=== PATIENT | female | born 1985 | race Caucasian/White ===

== ENCOUNTER 2017-09-06 09:27 | Emergency (ER) | payer OTHER ==
[~2017-09-06] VITALS: Ht 157.5 cm; Wt 104.8 kg
[~2017-09-06 09:27] MED LIST: SYN1 PO
[2017-09-06 09:33] VITALS: Ht 157.5 cm; Wt 104.8 kg
[2017-09-06 11:39] LABS: BASOPHIL % 0.3 % (0-2); PLATELET COUNT 215 x10^3mcL (130-400); RED CELL DISTRIBUTION WIDTH 13.3 % (11.5-14.5)
[2017-09-06 11:41] LABS: microscopic required? NO
[2017-09-06 11:56] LABS: UA SPECIFIC GRAVITY 1.015 (1.005-1.035); urine erythrocyte NEGATIVE (NEGATIVE)
[2017-09-06 11:57] LABS: ALKALINE PHOSPHATASE 80 U/L (46-116); ALT/SGPT 21 U/L (14-59); AST/SGOT 13 U/L (15-37); BILIRUBIN TOTAL 0.4 mg/dL (0.20-1.00); CARBON DIOXIDE 25.6 mmol/L (21-32); CHLORIDE SERUM 105 mmol/L (98-107); CREATININE SERUM 0.5 mg/dL (0.6-1.0); GFR1 > 60 mL/min; GLUCOSE SERUM 85 mg/dL (74-106); LIPASE 158 IU/L (73-393); POTASSIUM SERUM 4.1 mmol/L (3.5-5.1); SODIUM SERUM 139 mmol/L (136-145); TOTAL PROTEIN, SERUM 7.4 g/dL (6.4-8.2)
[2017-09-06 11:58] LABS: ALBUMIN 3.3 g/dL (3.4-5.0)
[2017-09-06 13:28] VITALS: BP 110/52
== END 2017-09-06 13:28 | disposition home or self-care (01) ==
LOC: ED 09:27
PROVIDERS: Emergency Medicine
DX: O26.892 Other specified pregnancy related conditions, second trimester (principal); R10.13 Epigastric pain; Z3A.14 14 weeks gestation of pregnancy; Z98.84 Bariatric surgery status
CPT/HCPCS: 36415

== ENCOUNTER 2017-09-07 19:33 | Emergency (ER) | payer OTHER ==
[~2017-09-07] VITALS: Ht 157.5 cm; Wt 107.0 kg
[2017-09-07 19:39] VITALS: Ht 157.5 cm; Wt 107.0 kg
[2017-09-07 21:25] VITALS: BP 120/71
== END 2017-09-07 21:25 | disposition home or self-care (01) ==
LOC: ED 19:33
DX: O26.892 Other specified pregnancy related conditions, second trimester (principal); R10.13 Epigastric pain; R19.7 Diarrhea, unspecified; Z90.49 Acquired absence of other specified parts of digestive tract; Z98.84 Bariatric surgery status
CPT/HCPCS: J2270